=== PATIENT | female | born 1955 | race Caucasian/White ===

== ENCOUNTER 2018-02-28 17:44 | Emergency (ER) | payer MEDICARE, OTHER ==
[2018-02-28 17:58] VITALS: RESP 18
[2018-02-28] MEDS ORDERED: SODIUM CHLORIDE 0.9% 1,000 ML IV ONE (18:19)
--- NOTE | 2018-02-28 18:28 | ED ---
General Adult HPI - General Chief complaint: GI Bleed Stated complaint: GI Bleed Time Seen by Provider: 02/28/18 18:01 Source: patient Mode of arrival: ambulatory Limitations: no limitations - History of Present Illness Initial comments: This is a 62-year-old female who presents emergency department for generalized abdominal discomfort, bloating, and rectal bleeding. The patient states that she has noticed the symptoms over the last few days. She states that she gets some burning epigastric abdominal pain especially when she eats. She also has the feeling of generally feeling bloated. She states that all the symptoms seem to be worsened by eating. She has had a little bit of diarrhea over the last couple of days and noticed a little bit of blood when she wiped earlier today. She described as bright red. There is also some blood tinging in the toilet water. She states it looked like Favio-Aid. She does admit that she will eat spicy food often. Denies any NSAID use. No history of PUD. Denies any chest pain, shortness of breath, lightheadedness, or dizziness. No other acute complaints at this time. - Related Data Home Medications Medication Instructions Recorded Confirmed Hemp Oil 1 dose SL DAILY PRN 02/28/18 02/28/18 Metoprolol Succinate [Toprol XL] 25 mg PO DAILY 02/28/18 02/28/18 Multivitamin [Multivitamins Adult 1 tab PO DAILY 02/28/18 02/28/18 Gummies] Thyroid,Pork [[place] Thyroid] 90 mg PO DAILY 02/28/18 02/28/18 Previous Rx's Medication Instructions Recorded Hydrocortisone [Anusol-Hc] 1 applic RECTAL BID #30 gm 02/28/18 Omeprazole [PriLOSEC] 40 mg PO DAILY #30 capsule. 02/28/18 Allergies Allergy/AdvReac Type Severity Reaction Status Date / Time No Known Allergies Allergy Verified 02/28/18 18:25 Review of Systems ROS Statement: Those systems with pertinent positive or pertinent negative responses have been documented in the HPI. ROS Other: All systems not noted in ROS Statement are negative. Past Medical History Past Medical History: Hyperlipidemia, Hypertension, Thyroid Disorder Additional Past Medical History / Comment(s): on beta marisela for rate control per patient History of Any Multi-Drug Resistant Organisms: None Reported Past Surgical History: Cholecystectomy, Orthopedic Surgery Past Psychological History: Anxiety, Depression Smoking Status: Current every day smoker Past Alcohol Use History: None Reported Past Drug Use History: None Reported General Exam - General Exam Comments Initial Comments: Constitutional: Awake alert Appears comfortable Head: Normocephalic atraumatic Eyes: no conjunctival injection No scleral icterus EOMI Neck: No JVD Supple Heart: Regular rate rhythm normal S1-S2 no murmurs Lungs: Clear to auscultation bilaterally No wheezing No rales Abdomen: Soft minutes mildly distended nontender Extremities: Non edematous DP pulses intact Radial pulses intact Neuro: A&Ox3 No focal neurologic deficits Psych: Appropriate mood and affect Limitations: no limitations Course Vital Signs 02/28/18 02/28/18 02/28/18 17:53 19:01 19:55 Temperature 98.5 F 98 F Pulse Rate 98 78 70 Respiratory 18 18 18 Rate Blood Pressure 186/77 143/66 130/78 O2 Sat by Pulse 98 98 98 Oximetry Medical Decision Making - Medical Decision Making This is a 62-year-old female came in for abdominal bloating and epigastric pain especially after eating. She also reported some GI bleeding. Rectal exam did show some bright red blood. She had visible hemorrhoids on examination. It is felt that this is the etiology of the bleeding. Her hemoglobin was normal. The patient felt improved after Pepcid and emergency department. The rest her blood work and x-rays were nonemergent. The patient is going to be sent home with Prilosec and Anusol. Told to follow-up closely with her primary doctor. If she notices any worsening or changing symptoms she is to return promptly to the emergency department for re-evaluation. All questions answered. - Lab Data Result diagrams: 02/28/18 18:05 02/28/18 18:05 Lab Results 02/28/18 02/28/18 02/28/18 Range/Units 18:05 18:05 18:05 WBC 8.5 (3.8-10.6) k/uL RBC 4.76 (3.80-5.40) m/uL Hgb 14.8 (11.4-16.0) gm/dL Hct 44.5 (34.0-46.0) % MCV 93.5 (80.0-100.0) fL MCH 31.2 (25.0-35.0) pg MCHC 33.3 (31.0-37.0) g/dL RDW 12.9 (11.5-15.5) % Plt Count 312 (150-450) k/uL Neutrophils % 64 % Lymphocytes % 27 % Monocytes % 5 % Eosinophils % 1 % Basophils % 1 % Neutrophils # 5.5 (1.3-7.7) k/uL Lymphocytes # 2.3 (1.0-4.8) k/uL Monocytes # 0.4 (0-1.0) k/uL Eosinophils # 0.1 (0-0.7) k/uL Basophils # 0.1 (0-0.2) k/uL PT (9.0-12.0) sec INR (<1.2) APTT (22.0-30.0) sec Sodium 144 (137-145) mmol/L Potassium 4.1 (3.5-5.1) mmol/L Chloride 107 (98-107) mmol/L Carbon Dioxide 24 (22-30) mmol/L Anion Gap 13 mmol/L BUN 13 (7-17) mg/dL Creatinine 0.60 (0.52-1.04) mg/dL Est GFR (CKD-EPI)AfAm >90 (>60 ml/min/1.73 sqM) Est GFR (CKD-EPI)NonAf >90 (>60 ml/min/1.73 sqM) Glucose 111 H (74-99) mg/dL Calcium 10.0 (8.4-10.2) mg/dL Magnesium 2.2 (1.6-2.3) mg/dL Total Bilirubin 0.4 (0.2-1.3) mg/dL AST 24 (14-36) U/L ALT 42 (9-52) U/L Alkaline Phosphatase 85 (38-126) U/L Total Protein 7.2 (6.3-8.2) g/dL Albumin 4.4 (3.5-5.0) g/dL Lipase 125 (23-300) U/L Urine Color Urine Appearance (Clear) Urine pH (5.0-8.0) Ur Specific [place] (1.001-1.035) Urine Protein (Negative) Urine Glucose (UA) (Negative) Urine Ketones (Negative) Urine Blood (Negative) Urine Nitrite (Negative) Urine Bilirubin (Negative) Urine Urobilinogen (<2.0) mg/dL Ur Leukocyte Esterase (Negative) Stool Occult Blood (Negative) Blood Type A Positive Blood Type Recheck CABO Indicated Antibody Screen NEGATIVE Spec Expiration Date 03/03/2018230402/28/18 02/28/18 02/28/18 Range/Units 18:05 18:48 19:15 WBC (3.8-10.6) k/uL RBC (3.80-5.40) m/uL Hgb (11.4-16.0) gm/dL Hct (34.0-46.0) % MCV (80.0-100.0) fL MCH (25.0-35.0) pg MCHC (31.0-37.0) g/dL RDW (11.5-15.5) % Plt Count (150-450) k/uL Neutrophils % % Lymphocytes % % Monocytes % % Eosinophils % % Basophils % % Neutrophils # (1.3-7.7) k/uL Lymphocytes # (1.0-4.8) k/uL Monocytes # (0-1.0) k/uL Eosinophils # (0-0.7) k/uL Basophils # (0-0.2) k/uL PT 9.5 (9.0-12.0) sec INR 1.0 (<1.2) APTT 21.5 L (22.0-30.0) sec Sodium (137-145) mmol/L Potassium (3.5-5.1) mmol/L Chloride (98-107) mmol/L Carbon Dioxide (22-30) mmol/L Anion Gap mmol/L BUN (7-17) mg/dL Creatinine (0.52-1.04) mg/dL Est GFR (CKD-EPI)AfAm (>60 ml/min/1.73 sqM) Est GFR (CKD-EPI)NonAf (>60 ml/min/1.73 sqM) Glucose (74-99) mg/dL Calcium (8.4-10.2) mg/dL Magnesium (1.6-2.3) mg/dL Total Bilirubin (0.2-1.3) mg/dL AST (14-36) U/L ALT (9-52) U/L Alkaline Phosphatase (38-126) U/L Total Protein (6.3-8.2) g/dL Albumin (3.5-5.0) g/dL Lipase (23-300) U/L Urine Color Light Yellow Urine Appearance Clear (Clear) Urine pH 5.5 (5.0-8.0) Ur Specific [place] 1.006 (1.001-1.035) Urine Protein Negative (Negative) Urine Glucose (UA) Negative (Negative) Urine Ketones Negative (Negative) Urine Blood Negative (Negative) Urine Nitrite Negative (Negative) Urine Bilirubin Negative (Negative) Urine Urobilinogen <2.0 (<2.0) mg/dL Ur Leukocyte Esterase Negative (Negative) Stool Occult Blood Positive H (Negative) Blood Type Blood Type Recheck Antibody Screen Spec Expiration Date Disposition Clinical Impression: Abdominal bloating, Gastritis, Hematochezia, Hemorrhoid Disposition: HOME SELF-CARE Condition: Stable Instructions: Gastritis (ED), Hemorrhoids (ED) Prescriptions: Hydrocortisone [Anusol-Hc] 1 applic RECTAL BID #30 gm Omeprazole [PriLOSEC] 40 mg PO DAILY #30 capsule.dr Is patient prescribed a controlled substance at d/c from ED?: No Referrals: Nonstaff,Physician [Primary Care Provider] - 1-2 days
[2018-02-28 18:33] LABS: Basophils # (A) 0.1 k/uL (0-0.2); Basophils % (A) 1 %; Eosinophils # (A) 0.1 k/uL (0-0.7); Eosinophils % (A) 1 %; HCT 44.5 % (34.0-46.0); HGB 14.8 gm/dL (11.4-16.0); Lymphocytes # (A) 2.3 k/uL (1.0-4.8); Lymphocytes % (A) 27 %; MCH 31.2 pg (25.0-35.0); MCHC 33.3 g/dL (31.0-37.0); MCV 93.5 fL (80.0-100.0); Mean Platelet Volume 7.1; Monocytes # (A) 0.4 k/uL (0-1.0); Monocytes % (A) 5 %; Neutrophils # (A) 5.5 k/uL (1.3-7.7); Neutrophils % (A) 64 %; Platelet Count 312 k/uL (150-450); RBC 4.76 m/uL (3.80-5.40); RDW 12.9 % (11.5-15.5); WBC 8.5 k/uL (3.8-10.6)
[2018-02-28] MEDS ORDERED: FAMOTIDINE 20 MG/2 ML VIAL IV STA (18:42)
[2018-02-28 18:50] LABS: ALT 42 U/L (9-52); AST 24 U/L (14-36); Albumin 4.4 g/dL (3.5-5.0); Alkaline Phosphatase 85 U/L (38-126); Anion Gap 13 mmol/L; Blood Urea Nitrogen 13 mg/dL (7-17); Carbon Dioxide 24 mmol/L (22-30); Chloride 107 mmol/L (98-107); Glucose 111 mg/dL (74-99); Lipase 125 U/L (23-300); Magnesium 2.2 mg/dL (1.6-2.3); Potassium 4.1 mmol/L (3.5-5.1); Sodium 144 mmol/L (137-145); Total Bilirubin 0.4 mg/dL (0.2-1.3); Total Protein 7.2 g/dL (6.3-8.2)
[2018-02-28 18:51] LABS: Prothrombin Time 9.5 sec (9.0-12.0)
[2018-02-28 18:53] LABS: Partial Thromboplastin Time 21.5 sec (22.0-30.0)
[2018-02-28 19:00] LABS: Appearance,Urine Clear (Clear); Bilirubin,Urine Negative (Negative); Blood,Urine Negative (Negative); Color,Urine Light Yellow; Glucose,Urine (UA) Negative (Negative); Ketones,Urine Negative (Negative); Leukocyte Esterase,Urine Negative (Negative); Nitrite,Urine Negative (Negative); PH, Urine 5.5 (5.0-8.0); Protein,Urine Negative (Negative); Specific Gravity,Urine 1.006 (1.001-1.035); Urobilinogen,Urine <2.0 mg/dL (<2.0)
--- NOTE | 2018-02-28 19:06 | XR ---
EXAMINATION TYPE: XR abdomen acute w cxr, 3 views DATE OF EXAM: 02/28/2018 COMPARISON: NONE HISTORY: Pain and bloating, diarrhea blood in stool TECHNIQUE: Supine, upright, and left side down lateral decubitus views of the abdomen are obtained. FINDINGS: The lungs are clear and the pleural spaces are negative. Cardiac mediastinal silhouette and bones and soft tissues are negative for acute findings. There is no evidence for pneumoperitoneum. The bowel gas pattern is unremarkable as there is air thro ughout nondilated small and large bowel. No sizeable air fluid levels. No mass effects are seen. No unusual calcifications. IMPRESSION: No acute radiographic process.
--- NOTE | 2018-02-28 19:48 | XR ---
PROCEDURE: XR lumbar spine 3V DATE AND TIME: 02/28/2018 6:44 PM REFERRING PHYSICIAN: Tang Skaggs DO CLINICAL INDICATION: PHH, Lower back pain TECHNIQUE: Department protocol. COMPARISON: None FINDINGS: There is no fracture or malalignment. Moderate marked multilevel spondylosis changes are appreciated. IMPRESSION: NO ACUTE PROCESS.
[2018-02-28 19:57] VITALS: BP 130/78; PULSE 70; TEMP 98
== END 2018-02-28 19:56 | disposition home or self-care (01) ==
LOC: EC 17:44
DX: K29.70 Gastritis, unspecified, without bleeding (principal); K92.1 Melena; K64.9 Unspecified hemorrhoids; R14.0 Abdominal distension (gaseous); R19.7 Diarrhea, unspecified; I10 Essential (primary) hypertension; E07.9 Disorder of thyroid, unspecified; F17.200 Nicotine dependence, unspecified, uncomplicated; Z79.899 Other long term (current) drug therapy; Z90.49 Acquired absence of other specified parts of digestive tract
CPT/HCPCS: 36415; 72100; 74022; 80053; 81003; 82272; 83690; 83735; 85025; 85610; 85730; 86850; 86900; 86901; 96361; 96374; 99285

== ENCOUNTER 2024-02-04 11:32 | Day surgery (SDC) | payer MEDICARE ==
[2024-02-02 16:13] VITALS: BMI 33.2
[2024-02-04] MEDS: LIDOCAINE 1% (10MG/ML) FOR IV START INTRADERMA ONE (13:13)
[2024-02-04] MEDS: LACTATED RINGERS 1,000 ML IV SCH (13:13)
[2024-02-04 13:37] VITALS: TEMP 98
[2024-02-04] MEDS ORDERED: PROPOFOL 10 MG/ML 20 ML VIAL IV ONE (13:53)
[2024-02-04] MEDS ORDERED: LIDOCAINE 1% INJ 10MG/ML (20 ML MDV) ONE (13:53)
[2024-02-04 14:20] VITALS: BP 123/78; PULSE 78
--- NOTE | 2024-02-04 14:20 | P.PCN ---
Date of Procedure: 02/04/24 Procedure(s) Performed: BRIEF HISTORY: Patient is a 68-year-old, pleasant, white male scheduled for an upper endoscopyas a part of evaluation of epigastric and left upper quadrant abdominal pain on and off for the last 3 months duration. PROCEDURE PERFORMED: Esophagogastroduodenoscopy with biopsy. PREOPERATIVE DIAGNOSIS: epigastric and left-sided abdominal pain for the last few months duration IV sedation per anesthesia. PROCEDURE: After informed consent was obtained, the patient was brought into [facility]. IV sedation was administered by Anesthesia under continuous monitoring. Initially the Olympus GIF-140 video endoscope was inserted into the mouth. Esophagus intubated without any difficulty. It was gradually advanced into the stomach and duodenum and carefully examined. The bulb and the second part of the duodenum appeared normal. The scope at this time was withdrawn to the stomach, adequately insufflated with air, and upon careful examination, mucosa of the antrum, had mild gastritis and biopsies were done from this area. Mucosa of the body, cardia and the fundus appeared normal. The scope was then withdrawn into the esophagus. small hiatal hernia noted.The GE junction was located at 35 cm from the incisors. The esophagus appeared normal. There were no erosions or ulcerations seen and the patient tolerated the procedure well. IMPRESSION: 1.Mild antral gastritis.M 2.Small hiatal hernia. RECOMMENDATIONS: The findings of this examination were discussed with the flavia rivero as well as his family. She was advised to follow with the biopsy results. Use [id number] H2 blockers as needed she hasn't reflux symptoms.
[2024-02-04 14:21] VITALS: RESP 18
== END 2024-02-04 14:37 | disposition home or self-care (01) ==
LOC: ORWHC2ENDO 11:32
PROVIDERS: ATTEND Internal Medicine Gastroenterology
DX: K29.50 Unspecified chronic gastritis without bleeding (principal); K44.9 Diaphragmatic hernia without obstruction or gangrene; K31.A0 Gastric intestinal metaplasia, unspecified; I10 Essential (primary) hypertension; E78.5 Hyperlipidemia, unspecified; E07.9 Disorder of thyroid, unspecified; F41.9 Anxiety disorder, unspecified; F32.A Depression, unspecified; K21.9 Gastro-esophageal reflux disease without esophagitis; Z79.890 Hormone replacement therapy; Z79.899 Other long term (current) drug therapy; Z90.49 Acquired absence of other specified parts of digestive tract
CPT/HCPCS: 88305; 88342; 43239; J2001; J2704